=== PATIENT | male | born 1980 | race Caucasian/White ===

== ENCOUNTER 2018-01-16 20:40 | Emergency (ER) | payer OTHER ==
[2018-01-16 20:49] VITALS: BP 126/84
--- NOTE | 2018-01-16 20:55 | EDPHY ---
H & P Stated Complaint: c/o sliver in Lt thumb ~ 30 min [employer] Time Seen by Provider: 01/16/18 20:50 HPI/ROS: CHIEF COMPLAINT: Splinter HISTORY OF PRESENT ILLNESS: Patient is a 38-year-old man who rubbed his hand on a door and sustained a splinter to the palmar aspect of his left thumb. It can be felt under the skin and seems to be over cm long. It is tenting the other side of his thumb. Normal capillary refill and sensation distally. No other injuries. Severity: Mild Modifying factors: None REVIEW OF SYSTEMS: Constitutional: denies: chills, fever, recent illness, recent injury EENTM: denies: blurred vision, double vision, nose congestion Respiratory: denies: cough, shortness of breath Cardiac: denies: chest pain, irregular heart rate, lightheadedness, palpitations Gastrointestinal/Abdominal: denies: abdominal pain, diarrhea, nausea, vomiting, blood streaked stools Genitourinary: denies: dysuria, frequency, hematuria, pain Musculoskeletal: denies: joint pain, muscle pain Skin: See HPI Neurological: denies: headache, numbness, paresthesia, tingling, dizziness, weakness Hematologic/Lymphatic: denies: blood clots, easy bleeding, easy bruising Immunologic/allergic: denies: HIV/AIDS, transplant 10 systems reviewed and negative except as noted EXAM: GENERAL: Well-appearing, well-nourished and in no acute distress. HEAD: Atraumatic, normocephalic. EYES: Pupils equal round and reactive to light, extraocular movements intact, sclera anicteric, conjunctiva are normal. ENT: TMs normal, nares patent, oropharynx clear without exudates. Moist mucous membranes. NECK: Normal range of motion, supple without lymphadenopathy or JVD. LUNGS: Breath sounds clear to auscultation bilaterally and equal. No wheezes rales or rhonchi. HEART: Regular rate and rhythm without murmurs, rubs or gallops. ABDOMEN: Soft, nontender, normoactive bowel sounds. No guarding, no rebound. No masses appreciated. BACK: No CVA tenderness, no spinal tenderness, step-offs or deformities EXTREMITIES: Normal range of motion, no pitting or edema. No clubbing or cyanosis. NEUROLOGICAL: Cranial nerves II through XII grossly intact. Normal speech, normal gait. 5 strength, normal movement in all extremities, normal sensation , normal reflexes PSYCH: Normal mood, normal affect. SKIN: Splinter as described above, small puncture wound to the medial aspect of his thumb. Source: Patient Exam Limitations: No limitations - Personal History Current Tetanus Diphtheria and Acellular Pertussis (TDAP): Yes - Medical/Surgical History Hx Asthma: No Hx Chronic Respiratory Disease: No Hx Diabetes: No Hx Cardiac Disease: No Hx Renal Disease: No Hx Cirrhosis: No Other PMH: denies - Family History Significant Family History: No pertinent family hx - Social History Smoking Status: Never smoked Alcohol Use: None Constitutional: Initial Vital Signs Temperature (C) 36.6 C 01/16/18 20:42 Heart Rate 60 01/16/18 20:42 Respiratory Rate 18 01/16/18 20:42 Blood Pressure 126/84 H 01/16/18 20:42 O2 Sat (%) 97 01/16/18 20:42 O2 Delivery Mode Room Air Medical Decision Making Procedures: Patient's thumb was anesthetized with bupivacaine. With splinter forceps and 11 gauge blade I opened the patient's wound slightly larger and was able to grasp the end of the splinter. It was removed intact in 1 piece. It was about 1.5 cm long. The patient tolerated the procedure well. His wound was dressed with antibiotic ointment and sterile dressings. ED Course/Re-evaluation: Patient tolerated the repair well. We discussed follow-up and wound management. We discussed indications for returning. He is happy with this and declines further workup or testing. We will leave the wound open. Differential Diagnosis: Partial list of the Differential diagnosis considered include but were not limited to; foreign body skin, infection, and although unlikely based on the history and physical exam, I also considered nerve injury, vascular injury, fracture, non accidental trauma. I discussed these differential diagnoses and the plan with the patient as well as the usual and expected course. The patient understands that the diagnosis is provisional and that in medicine we are not always correct and that further workup is often warranted. Usual and customary warnings were given. All of the patient's questions were answered. The patient was instructed to return to the emergency department should the symptoms at all worsen or return, otherwise to followup with the physician as we discussed. Departure - Departure Disposition: Home, Routine, Self-Care Clinical Impression: Soft tissues foreign body Condition: Fair Instructions: Soft Tissue Foreign Body (ED) Referrals: NONE *PRIMARY CARE P,. [Primary Care Provider] - As per Instructions Dane Blankenship MD [Medical Doctor] - As per Instructions
== END 2018-01-16 21:20 | disposition home or self-care (01) ==
LOC: CED 20:40
DX: S60.352A Superficial foreign body of left thumb, initial encounter (principal); X58.XXXA Exposure to other specified factors, initial encounter